=== PATIENT | male | born 1970 | race Caucasian/White ===

== ENCOUNTER → 2025-05-08 11:04 | Outpatient (BNVA) | payer OTHER, SELFPAY | PROVIDERS: Visit Provider Psychiatry & Neurology Psychiatry | DX: Z79.899 Other long term (current) drug therapy (principal) | CPT/HCPCS: 80053; 80061; 80178; 83036; 84443; 85025 ==

== ENCOUNTER → 2025-05-09 09:32 | Outpatient (BNVA) | payer OTHER, MEDICAID, SELFPAY | PROVIDERS: Visit Provider Nurse Practitioner | DX: N52.9 Male erectile dysfunction, unspecified (principal) | CPT/HCPCS: 84402; 84403 ==

== ENCOUNTER → 2025-06-19 10:35 | Outpatient (BNVA) | payer OTHER, MEDICAID, SELFPAY | PROVIDERS: PCP Nurse Practitioner; Visit Provider Nurse Practitioner | DX: S46.911A Strain of unspecified muscle, fascia and tendon at shoulder and upper arm level, right arm, initial encounter (principal) | CPT/HCPCS: 73030 ==

== ENCOUNTER → 2025-10-23 16:54 | Outpatient (BNVA) | payer OTHER, SELFPAY ==
[2025-07-06 10:52] VITALS: BP 158/94; BMI 30.9
== END ==
PROVIDERS: PCP Nurse Practitioner
DX: F33.1 Major depressive disorder, recurrent, moderate (principal)
CPT/HCPCS: 80053; 80178; 84402; 84443; 85025